=== PATIENT | female | born 1995 | race American Indian/Alaskan Native ===

== ENCOUNTER 2017-10-18 14:37 | Emergency (ER) | payer OTHER ==
[2017-10-18 14:38] VITALS: BMI 25.7
[2017-10-18] MEDS ORDERED: Sodium Chloride 0.9% 1,000 ML IV STA (15:00)
--- NOTE | 2017-10-18 15:05 | ED PDOC ---
Arrival/HPI - General Chief Complaint: Weakness/Neurological Deficit Time Seen by Provider: 10/18/17 14:43 Historian: Patient - History of Present Illness Narrative History of Present Illness (Text): 10/18/17 15:03 A 22 year old female, whose past medical history includes tendinitis, presents to the emergency department complaining of generalized dizziness and weakness. [place] fainting. Notes having been recently sick with chills, fatigue, and weakness. She mentions she was feeling better. Patient denies any other complaints at this time. Also, patient denies any history of diabetes, cardiac problems, or hypertension. No PMD Time/Duration: Other (some time today) Past Medical History - Provider Review Nursing Documentation Reviewed: Yes - Infectious Disease Hx of Infectious Diseases: None - Pulmonary Hx Asthma: Yes - Psychiatric Hx Substance Use: No - Anesthesia Hx Anesthesia: No Hx Anesthesia Reactions: No Hx Malignant Hyperthermia: No Family/Social History - Physician Review Nursing Documentation Reviewed: Yes Family/Social History: No Known Family HX Smoking Status: Never Smoked Hx Alcohol Use: No Hx Substance Use: No Allergies/Home Meds Allergies/Adverse Reactions: Allergies No Known Allergies Allergy (Verified 10/18/17 14:43) Home Medications: Home Meds Medication Instructions Recorded Confirmed Albuterol HFA [Ventolin HFA 90 1 puff INH PRN PRN 10/18/17 10/18/17 mcg/actuation (8 g)] Review of Systems - Physician Review All systems were reviewed & negative as marked: Yes - Review of Systems Constitutional: Fatigue, Other (generalized weakness) Neurological: Dizziness Physical Exam - Systems Exam Head: Present: Atraumatic, Normocephalic Pupils: Present: PERRL Extroacular Muscles: Present: EOMI Conjunctiva: Present: Normal Mouth: Present: Moist Mucous Membranes Neck: Present: Normal Range of Motion Respiratory/Chest: Present: Clear to Auscultation, Good Air Exchange. No: Respiratory Distress, Accessory Muscle Use Cardiovascular: Present: Regular Rate and Rhythm, Normal S1, S2. No: Murmurs Abdomen: Present: Normal Bowel Sounds. No: Tenderness, Distention, Peritoneal Signs Back: Present: Normal Inspection Upper Extremity: Present: Normal Inspection. No: Cyanosis, Edema Lower Extremity: Present: Normal Inspection. No: Edema Neurological: Present: GCS=15, CN II-XII Intact, Speech Normal Skin: Present: Warm, Dry, Normal Color. No: Rashes Psychiatric: Present: Alert, Oriented x 3, Normal Insight, Normal Concentration Medical Decision Making ED Course and Treatment: 10/18/17 15:05 Impression: 22 year old female with generalized dizziness and weakness. No acute findings on physical exam. Plan: -- Labs -- IV Fluids -- Serology -- Urinalysis -- Reassess and disposition Prior Visits: Notes and results from previous visits were reviewed. Patient was last seen in the emergency department on 12/28/2016 for fever, headache, bodyache, joint pain , and left jaw pain. Patient was discharged home. Progress Notes: - Lab Interpretations Lab Results: 10/18/17 14:55 10/18/17 14:55 Lab Results 10/18/17 16:00: Influenza Typ A,B (EIA) Negative for flu a/b 10/18/17 14:59: POC Glucose (mg/dL) 77 10/18/17 14:55: Sodium 138, Potassium 3.9, Chloride 101, Carbon Dioxide 27, Anion Gap 13, BUN 18, Creatinine 0.7, Est GFR ( Amer) > 60, Est GFR (Non- Af Amer) > 60, Random Glucose 93, Calcium 9.5, Total Bilirubin 0.6, AST 34, ALT 56, Alkaline Phosphatase 71, Total Protein 7.7, Albumin 4.5, Globulin 3.3, Albumin/Globulin Ratio 1.4 10/18/17 14:55: Urine Color [place], Urine Appearance Slight-cloudy, Urine pH 6.0 , Ur Specific [place] >= 1.030, Urine Protein 100 H, Urine Glucose (UA) Negative , Urine Ketones Trace H, Urine Blood Negative, Urine Nitrate Negative, Urine Bilirubin Negative, Urine Urobilinogen 1.0 H, Ur Leukocyte Esterase Trace H, Urine RBC Negative, Urine WBC 2 - 5, Ur Epithelial Cells Many, Urine Bacteria Few, Urine HCG, Qual Pending 10/18/17 14:55: WBC 4.7 D, RBC 5.16, Hgb 14.2, Hct 42.6, MCV 82.6, MCH 27.5, MCHC 33.3, RDW 12.4, Plt Count 163, MPV 9.9, Gran % 71.1 H, Lymph % (Auto) 23.2 , [place] % (Auto) 5.3, Eos % (Auto) 0.4 L, Baso % (Auto) 0.0, Gran # 3.33, Lymph # 1.1 L, [place] # 0.3, Eos # 0.0, Baso # 0.00 - Medication Orders Current Medication Orders: Discontinued Medications Sodium Chloride (Sodium Chloride 0.9%) 1,000 mls @ 999 mls/hr IV .Q1H1M STA Stop: 10/18/17 16:00 Last Admin: 10/18/17 15:05 Dose: 999 mls/hr eMAR Start Stop Document 10/18/17 15:05 SE (Rec: 10/18/17 15:05 SE [id number]) Intravenous Solution Start Date 10/18/17 Start Time 15:05 End Date 10/18/17 End time 16:05 Total Infusion Time 60 - Scribe Statement The provider has reviewed the documentation as recorded by the Kelly Leos Provider Scribe Attestation: All medical record entries made by the Scribe were at my direction and personally dictated by me. I have reviewed the chart and agree that the record accurately reflects my personal performance of the history, physical exam, medical decision making, and the department course for this patient. I have also personally directed, reviewed, and agree with the discharge instructions and disposition. Disposition/Present on Arrival - Present on Arrival Any Indicators Present on Arrival: No History of DVT/PE: No History of Uncontrolled Diabetes: No Urinary Catheter: No History of Decub. Ulcer: No History Surgical Site Infection Following: None - Disposition Have Diagnosis and Disposition been Completed?: Yes Diagnosis: Viral syndrome Disposition: HOME/ ROUTINE Disposition Time: 16:25 Patient Problems: Current Active Problems Problem Status Onset Viral syndrome Acute Condition: IMPROVED Referrals: Jg Key MD [Primary Care Provider] - Follow up with primary Forms: [employer] (Czech)
[2017-10-18 15:19] LABS: EOS % 0.4 % (1.5-5.0); GRAN # 3.33 (1.4-6.5); GRAN % 71.1 % (50.0-68.0); HEMOGLOBIN 14.2 g/dL (12.0-16.0); LYMPH # 1.1 (1.2-3.4); LYMPH % 23.2 % (22.0-35.0); MEAN CELL VOLUME 82.6 fl (80.0-105.0); MEAN CORPUSCULAR HEMOGLOBIN 27.5 pg (25.0-35.0); MEAN CORPUSCULAR HGB CONC 33.3 g/dl (31.0-37.0); MEAN PLATELET VOLUME 9.9 fl (7.0-11.0); MONO # 0.3 (0.1-0.6); MONO % 5.3 % (1.0-6.0); RBC 5.16 10^6/uL (3.5-6.1); RED CELL DISTRIBUTION WIDTH 12.4 % (11.5-14.5); WHITE BLOOD COUNT 4.7 10^3/ul (4.5-11.0)
[2017-10-18 15:20] LABS: URINE BILIRUBIN NEGATIVE (NEGATIVE); URINE BLOOD NEGATIVE (NEGATIVE); URINE GLUCOSE (UA) NEGATIVE (NEGATIVE); URINE LEUKOCYTE ESTERASE TRACE Leu/uL (NEGATIVE); URINE NITRATE NEGATIVE (NEGATIVE); URINE PROTEIN 100 mg/dL (<30 mg/dL)
[2017-10-18 15:21] LABS: URINE APPEARANCE SLIGHT-CLOUDY (CLEAR); URINE COLOR AMBER (YELLOW)
[2017-10-18 15:29] LABS: ALB/GLOB RATIO 1.4 (1.1-1.8); ALBUMIN 4.5 g/dL (3.0-4.8); ALT/SGPT 56 U/L (7-56); AST/SGOT 34 U/L (14-36); BLOOD UREA NITROGEN 18 mg/dL (7-21); CALCIUM 9.5 mg/dL (8.4-10.5); GFR AFRICAN-AMERICAN > 60; GFR NON-AFRICAN AMERICAN > 60
[2017-10-18 15:30] LABS: URINE EPITHELIAL CELLS MANY /hpf (0-5); URINE RBC NEGATIVE /hpf (0-2)
[2017-10-18 15:31] LABS: URINE BACTERIA FEW (NEG)
[2017-10-18 17:28] VITALS: RESP 16; TEMP 98.7
[2017-10-18 17:35] VITALS: BP 127/75; PULSE 82; O2SAT 100
[2017-10-18 19:02] LABS: HCG,QUALITATIVE URINE NEGATIVE (NEGATIVE)
== END 2017-10-18 16:23 | disposition home or self-care (01) ==
LOC: ED 14:37
DX: B34.9 Viral infection, unspecified (principal)
CPT/HCPCS: 80053; 81001; 82948; 84703; 85025; 87086; 87804; 96360; 99285; J7040